=== PATIENT | female | born 1995 | race Caucasian/White ===

== ENCOUNTER 2017-02-26 07:27 | Day surgery (SDC) | payer BC ==
[~2017-02-26] VITALS: Ht 167.6 cm; Wt 60.3 kg
[~2017-02-26 07:27] MED LIST: IRON325 M1 PO; MAGNESIUM30 MG PO; MINOCYCLINE HC100 M1 PO; NALTREXONE HCL50 MG PO; NORTRIPTYLINE H50 MG PO; VITAMIN D32000 UNI1 PO; ZYRTEC10 M3 PO
[2017-02-26] MEDS ORDERED: MELATONIN1 MG PO (07:52)
[2017-02-26] MEDS ORDERED: VITAMIN C250 M1 PO (07:53)
[2017-02-26] MEDS ORDERED: MARLISSA1 EACH PO (07:53)
[2017-02-26] MEDS ORDERED: PROBIOTIC1 EAC1 PO (07:54)
[2017-02-26 08:00] VITALS: BP 118/74
[2017-02-26] MEDS ORDERED: IBUPROFEN800 MG PO (10:51)
[2017-02-26] MEDS ORDERED: HYDROCODON-ACE1 EAC7 PO (10:51)
[2017-02-26 12:10] VITALS: BP 110/59
[2017-02-26 13:07] VITALS: BP 118/78
== END 2017-02-26 13:12 | disposition home or self-care (01) ==
LOC: SDC 07:27
PROC: 0WJP4ZZ Inspection of Gastrointestinal Tract, Percutaneous Endoscopic Approach (ICD-10-PCS; principal; 2017-02-26)
DX: R10.2 Pelvic and perineal pain (principal); G89.29 Other chronic pain; K21.9 Gastro-esophageal reflux disease without esophagitis; J45.909 Unspecified asthma, uncomplicated; F41.9 Anxiety disorder, unspecified
CPT/HCPCS: J0330; J0690; J1100; J1885; J2250; J2405; J2710; J2765; J3010; Q0175